=== PATIENT | male | born 1970 | race African-American/Black ===

== ENCOUNTER 2019-07-02 02:29 | Emergency (ER) | payer OTHER ==
[~2019-07-02] VITALS: Ht 172.7 cm; Wt 100.9 kg
[2019-07-02 02:31] VITALS: Ht 172.7 cm; Wt 100.9 kg
[2019-07-02 03:00] VITALS: BP 198/112; PULSE 98; RESP 16
== END 2019-07-02 03:17 | disposition home or self-care (01) ==
LOC: E/R 02:29
DX: M25.562 Pain in left knee (principal); I10 Essential (primary) hypertension
CPT/HCPCS: 99282